=== PATIENT | female | born 1990 | race Caucasian/White ===

== ENCOUNTER → 2021-01-10 | Outpatient (REF) | payer BC, OTHER | LOC: M SFHCWAGY 10:38 | PROVIDERS: ATTEND Specialist | DX: Z01.419 Encounter for gynecological examination (general) (routine) without abnormal findings (principal); Z12.4 Encounter for screening for malignant neoplasm of cervix ==

== ENCOUNTER → 2021-01-24 | Outpatient (REF) | payer BC, OTHER | LOC: M SFHCWAGY 15:18 | PROVIDERS: ATTEND Specialist | DX: C53.9 Malignant neoplasm of cervix uteri, unspecified (principal); R87.619 Unspecified abnormal cytological findings in specimens from cervix uteri ==

== ENCOUNTER → 2021-02-12 | Outpatient (REF) | payer BC | LOC: M SFHCWAGY 16:53 | PROVIDERS: ATTEND Specialist | DX: D06.9 Carcinoma in situ of cervix, unspecified (principal) ==

== ENCOUNTER → 2022-02-19 | Outpatient (CLI) | payer BC | LOC: M WHC 14:19 | PROVIDERS: ATTEND Nurse Practitioner Family | DX: N60.11 Diffuse cystic mastopathy of right breast (principal); N60.12 Diffuse cystic mastopathy of left breast | CPT/HCPCS: 76641; 77066; G0279 ==

== ENCOUNTER → 2022-04-17 | Outpatient (REF) ==
[2022-04-17 13:49] LABS: RSV AMPLIFICATION NEGATIVE (NEGATIVE)
== END ==
LOC: M EMP 11:43
PROVIDERS: ATTEND Family Medicine
DX: Z11.59 Encounter for screening for other viral diseases (principal)